=== PATIENT | female | born 1955 | race Two or more races ===

== ENCOUNTER 2018-08-04 16:10 | Emergency (ER) | payer OTHER ==
[~2018-08-04] VITALS: Ht 152.4 cm; Wt 49.9 kg
[2018-08-04] MEDS ORDERED: Ketorolac 30mg Inj IV ONE (16:45)
--- NOTE | 2018-08-04 16:49 | Emergency Room Report ---
History of Present Illness General Chief Complaint: Abdominal Pain Source: Patient Present Illness HPI Patient presents with 5-7 days of left flank pain. She woke up with the pain present. It's not worsened when she moves about. It's constant nonradiating and 8/10 at this time. She's taken some teas without help. She's been seen for this problem before was given pain medication. She was not given a diagnosis. She denies any fevers or chills. Is no nausea, vomiting, diarrhea, dysuria, hematuria. No trauma or increased strain. No rashes. + constipation , no blood. Patient diabetic. Not checking sugars recently. No polies. No depression, weakness, chest pain, calf swelling or pain, dyspnea. Allergies: Coded Allergies: No Known Allergies (Unverified , 08/04/18) Patient History Past Medical History: see triage record Social History: Denies: smoking Social History Narrative with daughter Last Menstrual Period: NA Reviewed Nursing Documentation: PMH: Agreed; PSxH: Agreed Nursing Documentation-PMH Past Medical History: No History, Except For Hx Diabetes: Yes Review of Systems All Other Systems: negative except mentioned in HPI Physical Exam Vital Signs Date Time Temp Pulse Resp B/P (MAP) Pulse Ox O2 Delivery O2 Flow Rate FiO2 08/04/18 16:29 98.0 70 18 145/74 92 Room Air 98.1 Sp02 EP Interpretation: reviewed, abnormal - interpreted as low by me General Appearance: well appearing, no apparent distress, GCS 15 Head: normocephalic Eyes: bilateral eye normal inspection, bilateral eye PERRL ENT: moist mucus membranes - poor dentition Neck: supple Respiratory: lungs clear, normal breath sounds Cardiovascular #1: regular rate, rhythm Cardiovascular #2: 2+ radial (R) Gastrointestinal: normal inspection, normal bowel sounds, no mass, non- distended, tenderness - L LQ and flank Genitourinary: no CVA tenderness Musculoskeletal: back normal, gait/station normal, normal range of motion Neurologic: alert, oriented x3, grossly normal Psychiatric: mood/affect normal Skin: normal inspection, warm/dry Medical Decision Making Diagnostic Impression: Primary Impression: Flank pain Additional Impressions: UTI (urinary tract infection) Qualified Codes: N39.0 - Urinary tract infection, site not specified Hyperglycemia Constipation Qualified Codes: K59.00 - Constipation, unspecified ER Course Patient presents with several days of left flank pain. Differential includes pyelonephritis, UTI, muscle strain, kidney stone, diverticulitis amongst others. Evaluation will be with EKG and labs. Also abdominal film and will be obtained. The patient will be treated with IV hydration, Zofran and Toradol. O2 sat is low, but patient without chest symptoms. Not tachycardic or tachypneic, so doubt PE. EKG no injury. Abd with R pelvic calcification, inc stool. CXR clear. Labs with normal WBC, elevated hgb CMP with elevated glucose. Elevated calcium. Improved with treatment. Antibiotics begun for pyuria. Discussed observation with patient and need for close follow up (and to return if worse). No medical emergency at this time. Patient stable for outpatient observation and treatment. Laboratory Tests Test 08/04/18 17:10 White Blood Count 7.3 K/UL (4.8-10.8) Red Blood Count 5.01 M/UL (4.20-5.40) Hemoglobin 16.2 G/DL (12.0-16.0) H Hematocrit 46.4 % (37.0-47.0) Mean Corpuscular Volume 93 FL (80-99) Mean Corpuscular Hemoglobin 32.2 PG (27.0-31.0) H Mean Corpuscular Hemoglobin Concent 34.9 G/DL (32.0-36.0) Red Cell Distribution Width 10.6 % (11.6-14.8) L Platelet Count 219 K/UL (150-450) Mean Platelet Volume 8.7 FL (6.5-10.1) Neutrophils (%) (Auto) 59.4 % (45.0-75.0) Lymphocytes (%) (Auto) 25.9 % (20.0-45.0) Monocytes (%) (Auto) 8.4 % (1.0-10.0) Eosinophils (%) (Auto) 4.5 % (0.0-3.0) H Basophils (%) (Auto) 1.8 % (0.0-2.0) Urine Color Pale yellow Urine Appearance Clear Urine pH 5 (4.5-8.0) Urine Specific [place] 1.020 (1.005-1.035) Urine Protein Negative (NEGATIVE) Urine Glucose (UA) Negative (NEGATIVE) Urine Ketones Negative (NEGATIVE) Urine Blood 2+ (NEGATIVE) H Urine Nitrite Negative (NEGATIVE) Urine Bilirubin Negative (NEGATIVE) Urine Urobilinogen Normal MG/DL (0.0-1.0) Urine Leukocyte Esterase 3+ (NEGATIVE) H Urine RBC 2-4 /HPF (0 - 2) H Urine WBC 10-15 /HPF (0 - 2) H Urine Squamous Epithelial Cells Few /LPF (NONE/OCC) Urine Bacteria Few /HPF (NONE) Sodium Level 139 MMOL/L (136-145) Potassium Level 4.7 MMOL/L (3.5-5.1) Chloride Level 104 MMOL/L (98-107) Carbon Dioxide Level 30 MMOL/L (21-32) Anion Gap 5 mmol/L (5-15) Blood Urea Nitrogen 11 mg/dL (7-18) Creatinine 0.8 MG/DL (0.55-1.30) Estimate Glomerular Filtration Rate > 60 mL/min (>60) Glucose Level 186 MG/DL (74-106) H Calcium Level 10.4 MG/DL (8.5-10.1) H Total Bilirubin 0.4 MG/DL (0.2-1.0) Aspartate Amino Transferase (AST) 23 U/L (15-37) Alanine Aminotransferase (ALT) 28 U/L (12-78) Alkaline Phosphatase 106 U/L (46-116) Total Protein 8.7 G/DL (6.4-8.2) H Albumin 3.8 G/DL (3.4-5.0) Globulin 4.9 g/dL Albumin/Globulin Ratio 0.8 (1.0-2.7) L Lipase 205 U/L (73-393) EKG Diagnostic Results Rate: normal Rhythm: NSR ST Segments: no acute changes Rhythm Strip Diag. Results EP Interpretation: yes Rhythm: NSR, no PVC's, no ectopy Other X-Ray Diagnostic Results Other X-Ray Diagnostic Results : X-Ray ordered: abd # of Views/Limited Vs Complete: 2 View Indication: Pain EP Interpretation: Yes Interpretation: nonspecific bowel gas, no sbo, other - calcification R pelvis Impression: Other Electronically Signed by: Electronically signed by Zeeshan Gan MD Last Vital Signs Date Time Temp Pulse Resp B/P (MAP) Pulse Ox O2 Delivery O2 Flow Rate FiO2 08/04/18 19:40 98.0 72 18 142/71 92 Room Air 98.0 Status: improved Disposition: HOME, SELF-CARE Condition: Improved Scripts Lactulose (LACTULOSE*) 20 Gm/30 Ml Solution 30 ML ORAL BID PRN for Constipation, #120 ML 1 Refill Prov: Zeeshan Gan M.D. 08/04/18 Acetaminophen (Tylenol) 325 Mg Tablet 650 MG ORAL Q6H PRN for Prn Pain/Headache/Temp > 101, #20 TAB 0 Refills Prov: Zeeshan Gan M.D. 08/04/18 Ibuprofen* (MOTRIN*) 600 Mg Tablet 600 MG ORAL Q6H PRN for For Pain, #16 TAB Prov: Zeeshan Gan M.D. 08/04/18 Cephalexin* (KEFLEX*) 500 Mg Capsule 500 MG ORAL EVERY 6 HOURS, #28 CAP Prov: Zeeshan Gan M.D. 08/04/18 Zeeshan Gan M.D. Aug 04, 2018 16:49
[2018-08-04 17:00] VITALS: BP 145/74
[2018-08-04 17:37] LABS: APPEARANCE,URINE CLEAR; BILIRUBIN, URINE NEGATIVE (NEGATIVE); COLOR,URINE PALE YELLOW; GLUCOSE, URINE (UA) NEGATIVE (NEGATIVE); KETONES,URINE NEGATIVE (NEGATIVE); LEUKOCYTE ESTERASE ,URINE 3+ (NEGATIVE); NITRITE,URINE NEGATIVE (NEGATIVE); PH,URINE 5 (4.5-8.0); PROTEIN,URINE NEGATIVE (NEGATIVE); UROBILINOGEN,URINE NORMAL MG/DL (0.0-1.0)
[2018-08-04 17:42] LABS: ANION GAP 5 mmol/L (5-15); BLOOD UREA NITROGEN 11 mg/dL (7-18); CALCIUM 10.4 MG/DL (8.5-10.1); CARBON DIOXIDE 30 MMOL/L (21-32); CHLORIDE 104 MMOL/L (98-107); CREATININE 0.8 MG/DL (0.55-1.30); POTASSIUM 4.7 MMOL/L (3.5-5.1); SODIUM 139 MMOL/L (136-145)
[2018-08-04 17:44] LABS: BASOPHILS % (AUTO) 1.8 % (0.0-2.0); EOSINOPHILS % (AUTO) 4.5 % (0.0-3.0); HEMATOCRIT 46.4 % (37.0-47.0); HEMOGLOBIN 16.2 G/DL (12.0-16.0); LYMPHOCYTES % (AUTO) 25.9 % (20.0-45.0); MEAN CORPUSCULAR VOLUME 93 FL (80-99); MONOCYTES % (AUTO) 8.4 % (1.0-10.0); NEUTROPHILS % (AUTO) 59.4 % (45.0-75.0); PLATELET COUNT 219 K/UL (150-450); RED BLOOD COUNT 5.01 M/UL (4.20-5.40); RED CELL DISTRIBUTION WIDTH 10.6 % (11.6-14.8); WHITE BLOOD COUNT 7.3 K/UL (4.8-10.8)
[2018-08-04 17:47] LABS: ALANINE AMINOTRANSFERASE 28 U/L (12-78); ALBUMIN 3.8 G/DL (3.4-5.0); ALBUMIN/GLOBULIN RATIO 0.8 (1.0-2.7); ALKALINE PHOSPHATASE 106 U/L (46-116); ASPARTATE AMINO TRANSFERASE 23 U/L (15-37); BILIRUBIN,TOTAL 0.4 MG/DL (0.2-1.0)
--- NOTE | 2018-08-04 17:49 | Diagnostic Imaging Report ---
EXAM: XR Abdomen, 2 Views CLINICAL HISTORY: ABD PAIN TECHNIQUE: Frontal view of the abdomen/pelvis with upright view of the abdomen. COMPARISON: No relevant prior studies available. FINDINGS: Intraperitoneal space: No pneumatosis or pneumoperitoneum. Gastrointestinal tract: Moderate colonic stool. No dilation. Bones/joints: Unremarkable. Other findings: Indeterminant subcentimeter pelvic calcifications. IMPRESSION: Moderate colonic stool.
[2018-08-04] MEDS ORDERED: cefTRIAXone 1 GM in NS 55 ML IVPB ONE (18:45)
[2018-08-04 19:15] VITALS: BP 145/74
[2018-08-04] MEDS ORDERED: LACTULOSE20 GM/301 ORAL (19:23)
[2018-08-04] MEDS ORDERED: CEPHALEXIN500 MG ORAL (19:23)
[2018-08-04] MEDS ORDERED: TYLENOL325 MG ORAL (19:23)
[2018-08-04] MEDS ORDERED: IBUPROFEN600 MG ORAL (19:23)
[2018-08-04 19:40] VITALS: BP 142/71
--- NOTE | 2018-08-07 19:10 | Cardiology Report ---
APPROVED REPORT EKG Measurement Heart [id number] Normal sinus rhythm Normal ECG
== END 2018-08-04 19:40 | disposition home or self-care (01) ==
LOC: EMR 16:45
DX: R10.9 Unspecified abdominal pain (principal); N39.0 Urinary tract infection, site not specified; E11.65 Type 2 diabetes mellitus with hyperglycemia; K59.00 Constipation, unspecified
CPT/HCPCS: 36415; 74018; 80053; 81003; 83690; 85025; 87086; 93005; 96361; 96365; 96375; 99284; J0696; J1885; J2405

== ENCOUNTER 2019-07-19 10:09 | Emergency (ER) | payer OTHER ==
[~2019-07-19] VITALS: Ht 160 cm; Wt 47.2 kg
[~2019-07-19 10:09] MED LIST: CEPHALEXIN500 MG ORAL; IBUPROFEN600 MG ORAL; LACTULOSE20 GM/301 ORAL; TYLENOL325 MG ORAL
[2019-07-19 10:43] VITALS: BP 140/64
--- NOTE | 2019-07-19 10:44 | NUR ---
ED Nurse Note: ermd eval done visual acuity done meds given to ermd
[2019-07-19] MEDS ORDERED: Fluorescein Strips BOTH EYES ONE (10:45)
[2019-07-19] MEDS ORDERED: Tetracaine 0.5% Opth 4ml Soln RIGHT EYE ONE (10:45)
--- NOTE | 2019-07-19 11:10 | NUR ---
ED Nurse Note: ermd eye exam done pt to follow up with pmd and eye doctor and neurology.
--- NOTE | 2019-07-19 11:13 | Emergency Room Report ---
History of Present Illness General Chief Complaint: Eye Problems Source: Patient Present Illness HPI 63-year-old female presents with blurry vision that started a week ago, patient was seen at the production planner office, they dilated her eyes, she left after being evaluated, she does not know the results of her test in denies any fevers chills chest pain she denies any curtains going over her eyes, no pain, patient presents for evaluation gums are mild, she does have a history of diabetes Allergies: Coded Allergies: No Known Allergies (Unverified , 08/04/18) Patient History Past Medical History: see triage record Last Menstrual Period: n/a Reviewed Nursing Documentation: PMH: Agreed; PSxH: Agreed Nursing Documentation-PMH Past Medical History: No History, Except For Hx Diabetes: Yes Review of Systems All Other Systems: negative except mentioned in HPI Physical Exam Vital Signs Date Time Temp Pulse Resp B/P (MAP) Pulse Ox O2 Delivery O2 Flow Rate FiO2 07/19/19 10:15 98.2 78 18 140/64 (89) 98 Room Air Sp02 EP Interpretation: reviewed, normal General Appearance: well appearing, no apparent distress, alert Head: normocephalic, atraumatic Eyes: bilateral eye PERRL, bilateral eye EOMI, bilateral eye other - Point-of- care ultrasound shows no retinal detachment, visual espinosa intact pressures are 17 in each eye, no fluorescein uptake ENT: uvula midline, moist mucus membranes Neck: supple, thyroid normal, supple/symm/no masses Respiratory: lungs clear, no respiratory distress, no retraction, no accessory muscle use Cardiovascular #1: normal peripheral pulses, regular rate, rhythm, no edema, no gallop, no murmur Gastrointestinal: non tender, soft, no guarding, no rebound Musculoskeletal: normal inspection Neurologic: alert, oriented x3 Psychiatric: mood/affect normal Skin: no rash, warm/dry Medical Decision Making Diagnostic Impression: Primary Impression: Retinopathy ER Course 63-year-old female presents with blurry vision most likely bilateral retinopathy , patient has an production planner that she can follow-up with, counseled patient , no acute interventions at this time, no fluorescein uptake pressures 17 bilaterally, counseled patient that she may have developing glaucoma, counseled patient to follow-up with her production planner, disposition home with return precautions. No evidence of retinal detachment on ultrasound. Last Vital Signs Date Time Temp Pulse Resp B/P (MAP) Pulse Ox O2 Delivery O2 Flow Rate FiO2 07/19/19 10:43 98.2 18 140/64 98 Room Air 07/19/19 10:15 78 Disposition: HOME, SELF-CARE Condition: Stable Referrals: NON PHYSICIAN (PCP) [facility] Lynnette Garcia [facility] Patient Instructions: Diabetic Retinopathy Additional Instructions: The patient was provided with discharge instructions, notified to follow-up with a primary care doctor and or specialist in the next 24-48 hours, and to return to the ED if they have worsening of their symptoms. Please note that this report is being documented using DRAGON technology. This can lead to erroneous entry secondary to incorrect interpretation by the dictating instrument. FOLLOW-UP WITH YOUR LIBRARY INFORMATION TECHNICIAN Vic Hassan MD Jul 19, 2019 11:13
--- NOTE | 2019-07-19 11:15 | NUR ---
ED Nurse Note: Pt cleared by health care Provider for discharge. DC instructions was given and explained to pt and verbalized understanding of teachings. All medical deviecs such as ID band removed. Pt is AAO x4, ambulatory and left with all personal belongings.
[2019-07-19 11:16] VITALS: BP 140/64
== END 2019-07-19 11:19 | disposition home or self-care (01) ==
LOC: EMR 10:32
DX: H53.8 Other visual disturbances (principal); H35.00 Unspecified background retinopathy; E11.319 Type 2 diabetes mellitus with unspecified diabetic retinopathy without macular edema
CPT/HCPCS: 99282